=== PATIENT | female | born 1960 | race Caucasian/White ===

== ENCOUNTER 2022-06-16 01:31 | Inpatient (IN) ==
[2022-06-16] MEDS ORDERED: IOPAMIDOL 100 ML BOTTLE IV ONE (01:32)
[2022-06-16] MEDS ORDERED: LORazepam 2 MG/ML VIAL IV ONE ×2 (01:49→02:18)
[2022-06-16 02:03] LABS: POC Calcium, Ionized 1.09 (1.16-1.32); POC Creatinine 0.7 (0.6-1.2)
[2022-06-16] MEDS ORDERED: 0.9 % SODIUM CHLORIDE 500 ML IV ONE (02:19)
[2022-06-16] MEDS ORDERED: morphine 4 MG/ML VIAL IV ONE (04:22)
[2022-06-16 04:31] LABS: Appearance,Urine CLEAR (Clear); Bilirubin,Urine Negative (Negative); Color,Urine STRAW; Culture Indicated,Urine No; Glucose,Urine (UA) Negative (Negative); Ketones,Urine Negative (Negative); Leukocyte Esterase,Urine Negative /uL (Negative); Nitrate,Urine Negative (Negative); Protein,Urine Negative (Negative); Specific Gravity,Urine 1.035 (1.000-1.035); Urine Blood Negative (Negative); Urobilinogen,Urine Negative
[2022-06-16 04:37] LABS: Amphetamine Screen,Urine None detected; Barbiturate Screen,Urine None detected; Benzodiazepines Screen,Urine None detected; Cannabinoid Screen,Urine None detected; Cocaine Screen,Urine None detected; Opiate Screen,Urine None detected; Oxycodone, Urine Screen None detected; Phencyclidine Screen,Urine None detected
--- NOTE | 2022-06-16 05:57 | Emergency Department Note ---
HPI General Chief complaint: Shortness of Breath/Dyspnea Stated complaint: sob Time Seen by Provider: 06/16/22 01:49 Source: patient Mode of arrival: ambulatory Limitations: no limitations History of Present Illness HPI Narrative: Narrative: This is a 62-year-old female with a history of congestive heart failure, smoker, methamphetamine use, anxiety and panic disorder returns to the emergency department for continued shortness of breath. She also has an intrathecal pain pump. The patient was seen earlier in the night she left before all of the labs had returned. I had seen her and given her 20 mg of Lasix IV. I prescribed the patient's Lasix and given her an albuterol inhaler. Patient is not on any diuretic normally she does take Coreg. She follows with Dr. Lewis for cardiology. Patient's symptoms started 2 days ago she noticed some lower extremity edema. Patient denies any fevers, chills, chest pain. She feels like she cannot catch her breath. EMS was summoned to her house 2 times since she was discharged from the emergency department. The first time she declined transfer she was given 2 breathing treatments. Related Data Home Medications Medication Instructions Recorded Confirmed carvedilol 6.25 mg tablet 6.25 mg PO BID 10/06/21 06/16/22 lisinopril 10 mg tablet 10 mg PO QDAY 10/06/21 06/16/22 escitalopram oxalate 20 mg tablet 20 mg PO QDAY 06/16/22 06/16/22 gabapentin 100 mg capsule 100 mg PO QHS 06/16/22 06/16/22 methocarbamol 750 mg tablet 750 mg PO BID PRN Muscle spasms 06/16/22 06/16/22 ropinirole 0.25 mg tablet 0.25 mg PO QHS PRN Muscle Spasm 06/16/22 06/16/22 trazodone 150 mg tablet 225 mg PO QHS 06/16/22 06/16/22 Previous Rx's Medication Instructions Recorded walker #1 ea 11/18/19 furosemide 20 mg tablet (Lasix) 20 mg PO QAM #7 tabs 06/15/22 Allergies Allergy/AdvReac Type Severity Reaction Status Date / Time propofol AdvReac Intermediate severe Verified 06/15/22 19:37 dysphoria post-procedure Review of Systems ROS ROS Narrative: Narrative: All systems ED: reviewed and negative except as stated. PFSH Narrative Patient History Narrative: Narrative: Medical/Surgical/Family History All Active Problems (Updated 06/16/22 @ 05:57 by Martinez Luke MD) CHF (congestive heart failure) (Acute) Pulmonary edema (Acute) Malfunction of intrathecal infusion pump (Acute) Hepatitis C (Chronic) Anxiety (Chronic) Depression (Chronic) Other low back pain (Chronic) CHF (congestive heart failure) (Chronic) Myofascial pain (Chronic) Thoracic back pain (Chronic) Chronic intractable pain (Chronic) Chronic pain (Chronic) Radiculopathy, lumbar region (Chronic) Pain in thoracic spine (Chronic) Spondylosis without myelopathy or radiculopathy, thoracic region (Chronic) Methamphetamine abuse (Chronic) Screening for colon cancer (Chronic) Screening for breast cancer (Chronic) Cellulitis (Chronic) Vascular insufficiency of extremity (Chronic) Gastroenteritis (Chronic) Back pain (Chronic) Bladder infection (Chronic) Osteoporosis (Chronic) Methadone dependence (Chronic) Compression fracture (Chronic) Low back pain (Chronic) SI (sacroiliac) joint dysfunction (Chronic) Contact dermatitis (Chronic) Elevated liver enzymes (Chronic) Hyperlipidemia (Chronic) Tachycardia (Chronic) Insomnia (Chronic) Panic disorder (Chronic) Hypertension, essential (Chronic) 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 12/29/15 start back on Lexapro 20 mg, trazodone 150 mg daily at bedtime, continue 1 mg lorazepam prn, propanolol, add BuSpar, discussed use, benefits and risks. refer for counseling, follow-up one month 05/04/16 PHQ 9=25. deteriorated, refilled lorazepam she's been out for a couple months. Continue Lexapro 20 mg, taper up on BuSpar, list of counselors given to patient today, refer to psychiatry, advised her to exercise daily and follow-up in one month 12/14/16 continue Lexapro 20 mg, lorazepam 1 mg twice a day refilled. Follow- up next available appointment 05/24/17 PHQ 9= 18. Short-term early refill of lorazepam given, continue Lexapro 20 mg, trazodone at bedtime Anxiety Cellulitis Chronic intractable pain Chronic pain with intrathecal pump Compression fracture 05/13/16 seen on x-ray acute L1 compression fracture, chronic compression fractures T8-12. 06/17/16 obtain DEXA scan, follow-up with pain clinic for treatment options Contact dermatitis Depression Elevated liver enzymes stress the importance of obtaining CT scan of abdomen, check CMP and chronic hepatitis panel today 12/14/16 lab work from 01/2016 came back positive for hepatitis C, referral to gastroenterology was made but patient has not been seen. states she will schedule today Hepatitis C negative for jaundice Hyperlipidemia plan to recheck in 3 months Hypertension, essential 12/14/16 stable on 10 mg of lisinopril, add 10 mg propanolol twice a day to help with tremor and anxiety, continue to monitor blood pressure Insomnia 05/04/16 discussed she is currently devoting too much time to sleep and this will make it difficult for her to sleep at night, discussed appropriate dose of trazodone 150 at bedtime, devote 7-9 hours of sleep at bedtime, encouraged a walking program, home stretching program 12/14/16 continue trazodone 150 at bedtime Low back pain 05/04/16 discussed diagnosis, rationale for treatment, medication use and side effects. Encouraged gentle stretching, range of motion, have her start a walking program twice a day, physical therapy, discussed rationale with patient and follow-up in one month. 06/17/16 deteriorated with recent compression fracture and injury, encouraged her to follow up with the pain clinic, she is currently established. Continue physical therapy Methadone dependence 06/17/16 this is new news for me. followed by the pain clinic for the last 3 years, pain clinic prescribing buprenorphine-naloxone 8-2mg once a day. request notes Myofascial pain Other low back pain Pain in thoracic spine Panic disorder 05/16/2014 12/29/15 deteriorated, she's been off Lexapro. start back on Lexapro, con tinue trazodone, lorazepam, propanolol and add BuSpar. refer for counseling and follow-up 1 month 05/24/17 continue Lexapro 20 mg and lorazepam, propanolol and trazodone. Radiculopathy, lumbar region SI (sacroiliac) joint dysfunction 05/04/16 discussed diagnosis, rationale for treatment, medication use and side effects. Encouraged gentle stretching, range of motion, have her start a walking program twice a day, physical therapy, discussed rationale with patient and follow-up in one month. 06/17/16 continues to be an issue, she has started physical therapy, encouraged her to continue Spondylosis without myelopathy or radiculopathy, thoracic region Tachycardia EKG showing sinus tachycardia, nonspecific ST depression. orthostatic blood pressure stable. discussed results of Holter monitor, showing PVCs. Plan to obtain echocardiogram results. Obtain chest x-ray. suspect tachycardia is related to anxiety. lorazepam increased and propanolol added. discussed use, risk and benefit of medication. follow-up one month Thoracic back pain Surgical History (Updated 05/20/21 @ 09:58 by Lulu Zurita) History of appendectomy History of section x2 History of surgery RFTC Bilat T11-L1 w/sed 04/16/2019 MBB #2 [place]. T11-L1 w/o sed 02/25/2019 MBB #1 [place]. T11-L1 w/sed 01/31/2019 LESI #1 L1-2 w/sed 01/03/2017 Family History Mother Malignant neoplasm of female breast Unknown Family history of neoplasm of brain Grandfather Family history of malignant neoplasm Maternal Family history of malignant neoplasm Paternal Grandmother Family history of malignant neoplasm Maternal Family history of malignant neoplasm Paternal Father Malignant neoplasm of kidney Social History Smoking Status: Current every day smoker Alcohol Intake Frequency: does not drink Substance Use: does not use Exam Narrative Narrative: Narrative: Vital signs noted General: Awake. Alert. No distress. HEENT: NCAT PERRL EOMI. No conjunctivitis. Membranes moist. Neck: Supple, trachea midline Cardiovascular: Tachypneic Respiratory: Decent air movement throughout there is diffuse Rales no significant wheezing at this time Gastrointestinal: Soft. No tenderness Musculoskeletal: Trace lower extremity edema bilaterally Skin: Warm. Dry. No rash Neurologic: Alert and oriented x3 General Limitations: no limitations Course Vital Signs Vital signs: Vital Signs Temperature 97 F 06/16/22 01:32 Pulse Rate 131 H 06/16/22 01:32 Respiratory Rate 20 06/16/22 01:32 Blood Pressure 143/87 06/16/22 01:32 Pulse Oximetry (%) 91 06/16/22 01:32 Oxygen Delivery Method Room Air 06/16/22 01:32 Temperature 97.3 F 06/16/22 18:00 Pulse Rate 109 H 06/16/22 17:26 Respiratory Rate 19 06/16/22 17:26 Blood Pressure 124/84 06/16/22 17:00 Pulse Oximetry (%) 95 06/16/22 17:26 Oxygen Delivery Method Nasal Cannula 06/16/22 17: Oxygen Flow Rate (L/min) 2 06/16/22 17:26 MDM MDM Narrative Medical decision making narrative: Narrative: Patient presents to the emergency department with complaints of shortness of breath. She is tachypneic, tachycardic she is moving decent air but there is scattered rails. Differential includes but is not limited to CHF exacerbation, pneumonia, ACS, anxiety, substance use. The patient denies any recent substance use UDS was obtained and negative she denies any recent alcohol use or sudden cessation of alcohol use. She states herself that her symptoms may be just related to a panic attack. Patient was given at total of 2 mg of Ativan she still has significant work of breathing. Venous blood gas shows a normal pH 7.41, PCO2 is 34.8. Venous lactate is 4.0. Patient's chest x-ray from yesterday does show cardiomegaly with vascular congestion. To me this looks similar to prior. Did obtain a CT scan patient does have interstitial pulmonary edema. Patient was placed on BiPAP she had significant improvement in her heart rate, respiratory rate. The patient had been given 20 mg of IV Lasix prior to being discharged last night she had good diuresis from this. Patient's CBC did not show any evidence of leukocytosis or acute anemia. EKG per my interpretation shows sinus tachycardia multiple PVCs. Patient's proBNP is 3000 when I reviewed prior admission at [facility] in August 2021 electrolyte her proBNP at that time was around 1500 she was admitted for CHF exacerbation. Patient's systolic blood pressure was in the 130s to 140s. Lab Data Labs: Lab Results 06/16/22 06/16/22 06/16/22 Range/Units 02:00 02:00 02:02 POC Hct 40.0 (36-48) POC pH (7.35-7.45) POC pCO2 (35-45) mmHg POC pO2 (80-100) mmHg POC HCO3 (22-26) mmHg POC ABG Base Excess (-2-3) ABG Lactic Acid (0.5-2) POC VBG pH 7.41 (7.32-7.42) POC VBG pCO2 at Temp 34.8 L (41-51) POC VBG pO2 28 (25-40) POC VBG HCO3 22.2 L (24-28) POC VBG Total CO2 23.0 L (25-29) POC Venous O2 Sat 54.0 (40-70) POC VBG Base Excess -2.0 (-2-2) VBG Lactic Acid 4.0 H* (0.5-2) Hgb O2 Saturation (94-97) POC Sodium 137 (133-145) POC Potassium 4.0 (3.3-5.1) POC Chloride 101 (96-108) POC Total CO2 23.0 (22-30) POC BUN 13 (6-20) POC Creatinine 0.7 (0.6-1.2) POC Glucose 170 H (70-105) POC WB Ioniz Calcium 1.09 L (1.16-1.32) Urine Color Urine Appearance (Clear) Urine pH (5.0-9.0) Ur Specific [place] (1.000-1.035) Urine Protein (Negative) mg/dL Urine Glucose (UA) (Negative) mg/dL Urine Ketones (Negative) mg/dL Urine Occult Blood (Negative) mg/dL Urine Nitrate (Negative) Urine Bilirubin (Negative) mg/dL Urine Urobilinogen mg/dL Ur Leukocyte Esterase (Negative) /uL Ur Culture Indicated? Urine Opiates Screen Ur Opiates Confirm Ur Oxycodone Screen U Oxycod/Oxymor Confirm Urine Methadone Screen Ur Methadone Confirm Ur Barbiturates Screen Ur Barbiturate Confirm Ur Phencyclidine Scrn Urine PCP Confirm Ur Amphetamines Screen U Amphetamines Confirm U Benzodiazepines Scrn Ur Benzodiazepine, Qnt Urine Cocaine Screen Urine Cocaine Confirm U Cannabinoids Confirm U Marijuana (THC) Screen POC Troponin I 0.02 (0.00-0.08) 06/16/22 06/16/22 06/16/22 Range/Units 03:53 03:53 04:52 POC Hct (36-48) POC pH (7.35-7.45) POC pCO2 (35-45) mmHg POC pO2 (80-100) mmHg POC HCO3 (22-26) mmHg POC ABG Base Excess (-2-3) ABG Lactic Acid (0.5-2) POC VBG pH 7.41 (7.32-7.42) POC VBG pCO2 at Temp 38.0 L (41-51) POC VBG pO2 24 L (25-40) POC VBG HCO3 24.1 (24-28) POC VBG Total CO2 25.0 (25-29) POC Venous O2 Sat 42.0 (40-70) POC VBG Base Excess -1.0 (-2-2) VBG Lactic Acid 2.6 H (0.5-2) Hgb O2 Saturation (94-97) POC Sodium (133-145) POC Potassium (3.3-5.1) POC Chloride (96-108) POC Total CO2 (22-30) POC BUN (6-20) POC Creatinine (0.6-1.2) POC Glucose (70-105) POC WB Ioniz Calcium (1.16-1.32) Urine Color Straw Urine Appearance Clear (Clear) Urine pH 6.0 (5.0-9.0) Ur Specific [place] 1.035 (1.000-1.035) Urine Protein Negative (Negative) mg/dL Urine Glucose (UA) Negative (Negative) mg/dL Urine Ketones Negative (Negative) mg/dL Urine Occult Blood Negative (Negative) mg/dL Urine Nitrate Negative (Negative) Urine Bilirubin Negative (Negative) mg/dL Urine Urobilinogen Negative mg/dL Ur Leukocyte Esterase Negative (Negative) /uL Ur Culture Indicated? No Urine Opiates Screen None detected Ur Opiates Confirm TNP Ur Oxycodone Screen None detected U Oxycod/Oxymor Confirm TNP Urine Methadone Screen None detected Ur Methadone Confirm TNP Ur Barbiturates Screen None detected Ur Barbiturate Confirm TNP Ur Phencyclidine Scrn None detected Urine PCP Confirm TNP Ur Amphetamines Screen None detected U Amphetamines Confirm TNP U Benzodiazepines Scrn None detected Ur Benzodiazepine, Qnt TNP Urine Cocaine Screen None detected Urine Cocaine Confirm TNP U Cannabinoids Confirm TNP U Marijuana (THC) Screen None detected POC Troponin I (0.00-0.08) 06/16/22 06/16/22 Range/Units 05:10 08:15 POC Hct (36-48) POC pH 7.43 (7.35-7.45) POC pCO2 32.3 L (35-45) mmHg POC pO2 56 L (80-100) mmHg POC HCO3 21.6 L (22-26) mmHg POC ABG Base Excess -3.0 L (-2-3) ABG Lactic Acid 2.8 H (0.5-2) POC VBG pH (7.32-7.42) POC VBG pCO2 at Temp (41-51) POC VBG pO2 (25-40) POC VBG HCO3 (24-28) POC VBG Total CO2 (25-29) POC Venous O2 Sat (40-70) POC VBG Base Excess (-2-2) VBG Lactic Acid 2.0 (0.5-2) Hgb O2 Saturation 90.0 L (94-97) POC Sodium (133-145) POC Potassium (3.3-5.1) POC Chloride (96-108) POC Total CO2 23.0 (22-30) POC BUN (6-20) POC Creatinine (0.6-1.2) POC Glucose (70-105) POC WB Ioniz Calcium (1.16-1.32) Urine Color Urine Appearance (Clear) Urine pH (5.0-9.0) Ur Specific [place] (1.000-1.035) Urine Protein (Negative) mg/dL Urine Glucose (UA) (Negative) mg/dL Urine Ketones (Negative) mg/dL Urine Occult Blood (Negative) mg/dL Urine Nitrate (Negative) Urine Bilirubin (Negative) mg/dL Urine Urobilinogen mg/dL Ur Leukocyte Esterase (Negative) /uL Ur Culture Indicated? Urine Opiates Screen Ur Opiates Confirm Ur Oxycodone Screen U Oxycod/Oxymor Confirm Urine Methadone Screen Ur Methadone Confirm Ur Barbiturates Screen Ur Barbiturate Confirm Ur Phencyclidine Scrn Urine PCP Confirm Ur Amphetamines Screen U Amphetamines Confirm U Benzodiazepines Scrn Ur Benzodiazepine, Qnt Urine Cocaine Screen Urine Cocaine Confirm U Cannabinoids Confirm U Marijuana (THC) Screen POC Troponin I (0.00-0.08) CC TIME Critical Care Time Critical Care Time: Yes Total Critical Care Time: 35 Attestation: Total critical care time of 35 min including performance of history and physical exam, review of results, re-examinations, time spent documenting, order worker, review of old records, discussions with patient and family, discussions with insolvency consultant(s), discussion with admitting physician, completion of admission/transfer paperwork. This does not include time for any separately documented procedures. Discharge Plan Patient/Caregiver Discharge Instructions Pt seen by INCOME TAX ADVISOR/PA only: No Clinical Impression: Pulmonary edema Patient Disposition: Still a Patient Condition: Good Discharge Date/Time: 06/16/22 09:48
--- NOTE | 2022-06-16 09:01 | Cat Scan Report ---
History: Shortness of breath, evaluate for pulmonary emboli TECHNIQUE: Following injection of intravenous nonionic contrast the chest was imaged during the pulmonary arterial phase from above the thoracic inlet through the adrenals. Sagittal, coronal and MIPS images were created. The radiation exposure was limited using dose reduction technology. FINDINGS: The pulmonary arteries are normal without evidence of emboli. Central pulmonary artery is normal in caliber. The heart is mildly enlarged. There are few scattered plaques in the left anterior descending coronary. The aorta is normal in caliber and there is minimal plaque formation in the arch. Mild emphysema is present in both lungs, most apparent in the upper lobes. There is interstitial edema in the lung bases including the lower lobes, middle lobe and lingula. There are subtle groundglass alveolar opacities in the lung bases. No lobar consolidation is present. There is no evidence of a lung mass. Tiny bilateral layering pleural effusions are seen. There is no pericardial effusion. No adenopathy is detected. Bone windows reveal numerous compression fractures in the thoracic and upper lumbar spine. The most severe compression fracture is at L1. The fractures are stable with no change since prior CT done on 02/10/22. IMPRESSION: No evidence pulmonary emboli. Mild emphysema Mild cardiomegaly and congestive heart failure Interpreted and Authenticated by: Isaias Duarte 06/16/22
--- NOTE | 2022-06-16 10:41 | Internal Med History&Physical ---
HPI History of Present Illness Patient information: Note initiated : 06/16/22 at 10:27 am Service Date, if different from initiated Date: [] Patient: Elsa Walters a 62 y/o F admitted on 06/16/22 for sob. Chief Complaint: [] History of present illness: Ms. Walters is a 62 year old F Patient presents for shortness of breath. Patient states that several nights ago she develops worsening shortness of breath. She denies any increased cough. Patient does have history of CHF but not normally on a diuretic. She does take Coreg and lisinopril. Patient reports increased leg swelling over the past few days. She also complains orthopnea. EMS been called to her house twice and she declined transfer to ED the first time but second time was amenable. Patient denies any recent illnesses. Denies chest pain She does have a history of anxiety as well and states Anxiety contributing. Chest x-ray in ED showed pulmonary edema. Because of respiratory distress and pulmonary edema patient placed on BiPAP with improvement. Patient given Lasix in the ED. proBNP 3000. Lactic acidosis elevated at 4 initially with an improved after being on BiPAP. CTA of the chest showed no PE but did showed mild emphysema as well as cardiomegaly and pulmonary edema. EKG in sinus rhythm. Review of Systems: Pertinent positives of as above plus episode of diarrhea yesterday. Denies headache/fever/chills/nausea/vomiting/chest or abdominal pain/cough/. Remaining 10 point review of system reviewed negative PHYSICAL EXAM General: Alert, Awake, No acute Distress Eyes/N/T: EOMI, no scleral icterus, PERRL, Head/Neck: neck supple, full ROM, normocephalic atraumatic CV: Tacky but regular,, No murmurs, normal s1/s2 Pulm: Diminished b/l, occasional wheezing, mod respiratory distress Abd: soft, nontender, +BS x4 Ext: no clubbing/cyanosis, b/l LE 1-2+ edema, nontender Neuro: Alert, CN 2-12 grossly intact, no focal deficits, moves all extremities, , sensations intact b/l upper/lower Psychiatric: Anxious Skin: warm/dry, normal color PFSH PFSH All Active Problems (Updated 06/16/22 @ 05:57 by Martinez Luke MD) CHF (congestive heart failure) (Acute) Pulmonary edema (Acute) Malfunction of intrathecal infusion pump (Acute) Hepatitis C (Chronic) Anxiety (Chronic) Depression (Chronic) Other low back pain (Chronic) CHF (congestive heart failure) (Chronic) Myofascial pain (Chronic) Thoracic back pain (Chronic) Chronic intractable pain (Chronic) Chronic pain (Chronic) Radiculopathy, lumbar region (Chronic) Pain in thoracic spine (Chronic) Spondylosis without myelopathy or radiculopathy, thoracic region (Chronic) Methamphetamine abuse (Chronic) Screening for colon cancer (Chronic) Screening for breast cancer (Chronic) Cellulitis (Chronic) Vascular insufficiency of extremity (Chronic) Gastroenteritis (Chronic) Back pain (Chronic) Bladder infection (Chronic) Osteoporosis (Chronic) Methadone dependence (Chronic) Compression fracture (Chronic) Low back pain (Chronic) SI (sacroiliac) joint dysfunction (Chronic) Contact dermatitis (Chronic) Elevated liver enzymes (Chronic) Hyperlipidemia (Chronic) Tachycardia (Chronic) Insomnia (Chronic) Panic disorder (Chronic) Hypertension, essential (Chronic) 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 12/29/15 start back on Lexapro 20 mg, trazodone 150 mg daily at bedtime, continue 1 mg lorazepam prn, propanolol, add BuSpar, discussed use, benefits and risks. refer for counseling, follow-up one month 05/04/16 PHQ 9=25. deteriorated, refilled lorazepam she's been out for a couple months. Continue Lexapro 20 mg, taper up on BuSpar, list of counselors given to patient today, refer to psychiatry, advised her to exercise daily and follow-up in one month 12/14/16 continue Lexapro 20 mg, lorazepam 1 mg twice a day refilled. Follow- up next available appointment 05/24/17 PHQ 9= 18. Short-term early refill of lorazepam given, continue Lexapro 20 mg, trazodone at bedtime Anxiety Cellulitis Chronic intractable pain Chronic pain with intrathecal pump Compression fracture 05/13/16 seen on x-ray acute L1 compression fracture, chronic compression fractures T8-12. 06/17/16 obtain DEXA scan, follow-up with pain clinic for treatment options Contact dermatitis Depression Elevated liver enzymes stress the importance of obtaining CT scan of abdomen, check CMP and chronic hepatitis panel today 12/14/16 lab work from 01/2016 came back positive for hepatitis C, referral to gastroenterology was made but patient has not been seen. states she will schedule today Hepatitis C negative for jaundice Hyperlipidemia plan to recheck in 3 months Hypertension, essential 12/14/16 stable on 10 mg of lisinopril, add 10 mg propanolol twice a day to help with tremor and anxiety, continue to monitor blood pressure Insomnia 05/04/16 discussed she is currently devoting too much time to sleep and this will make it difficult for her to sleep at night, discussed appropriate dose of trazodone 150 at bedtime, devote 7-9 hours of sleep at bedtime, encouraged a walking program, home stretching program 12/14/16 continue trazodone 150 at bedtime Low back pain 05/04/16 discussed diagnosis, rationale for treatment, medication use and side effects. Encouraged gentle stretching, range of motion, have her start a walking program twice a day, physical therapy, discussed rationale with patient and follow-up in one month. 06/17/16 deteriorated with recent compression fracture and injury, encouraged her to follow up with the pain clinic, she is currently established. Continue physical therapy Methadone dependence 06/17/16 this is new news for me. followed by the pain clinic for the last 3 years, pain clinic prescribing buprenorphine-naloxone 8-2mg once a day. request notes Myofascial pain Other low back pain Pain in thoracic spine Panic disorder 05/16/2014 12/29/15 deteriorated, she's been off Lexapro. start back on Lexapro, continue trazodone, lorazepam, propanolol and add BuSpar. refer for counseling and follow-up 1 month 05/24/17 continue Lexapro 20 mg and lorazepam, propanolol and trazodone. Radiculopathy, lumbar region SI (sacroiliac) joint dysfunction 05/04/16 discussed diagnosis, rationale for treatment, medication use and side effects. Encouraged gentle stretching, range of motion, have her start a walking program twice a day, physical therapy, discussed rationale with patient and follow-up in one month. 06/17/16 continues to be an issue, she has started physical therapy, encouraged her to continue Spondylosis without myelopathy or radiculopathy, thoracic region Tachycardia EKG showing sinus tachycardia, nonspecific ST depression. orthostatic blood pressure stable. discussed results of Holter monitor, showing PVCs. Plan to obtain echocardiogram results. Obtain chest x-ray. suspect tachycardia is related to anxiety. lorazepam increased and propanolol added. discussed use, risk and benefit of medication. follow-up one month Thoracic back pain Surgical History (Updated 05/20/21 @ 09:58 by Lulu Zurita) History of appendectomy History of section x2 History of surgery RFTC Bilat T11-L1 w/sed 04/16/2019 MBB #2 [place]. T11-L1 w/o sed 02/25/2019 MBB #1 [place]. T11-L1 w/sed 01/31/2019 LESI #1 L1-2 w/sed 01/03/2017 Family History Mother Malignant neoplasm of female breast Unknown Family history of neoplasm of brain Grandfather Family history of malignant neoplasm Maternal Family history of malignant neoplasm Paternal Grandmother Family history of malignant neoplasm Maternal Family history of malignant neoplasm Paternal Father Malignant neoplasm of kidney Social History (Updated 05/24/17 @ 16:22 by LUIS ANGEL Dennison) adopted: No caregiver/support person: No foster care: No household members: family housing: other details: mobile home lives independently: Yes marital status: education level: high school service: No fdc: No occupational status: unemployed 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 pets and animals: Yes pets and animals: cat(s) and dog(s) hx recent travel: No sexually active: No smoking status: Current every day smoker tobacco type: cigarettes per day: 20 alcohol intake frequency: does not drink substance use type: does not use MEDS/ALLERGIES Home Medications and Allergies Home Medications Medication Instructions Recorded Confirmed Type walker #1 ea 11/18/19 06/16/22 Rx carvedilol 6.25 mg tablet 6.25 mg PO BID 10/06/21 06/16/22 History lisinopril 10 mg tablet 10 mg PO QDAY 10/06/21 06/16/22 History furosemide 20 mg tablet (Lasix) 20 mg PO QAM #7 tabs 06/15/22 06/16/22 Rx Allergies Allergy/AdvReac Type Severity Reaction Status Date / Time propofol AdvReac Intermediate severe Verified 06/15/22 19:37 dysphoria post-procedure EXAM Constitutional Vitals: Temp Pulse Resp BP Pulse Ox O2 Del Method O2 Flow Rate 97 F 104 H 16 153/92 98 BiPAP 30 06/16/22 09:42 06/16/22 09:34 06/16/22 09:42 06/16/22 09:42 06/16/22 09:42 06/16/22 06:58 06/16/22 06:01 DATA Data Completed and Pending Labs: Labs from last 24 hours 06/16/22 06/16/22 06/16/22 08:15 05:10 04:52 POC Hct POC pH 7.43 POC pCO2 32.3 L POC pO2 56 L POC HCO3 21.6 L POC ABG Base Excess -3.0 L ABG Lactic Acid 2.8 H POC VBG pH 7.41 POC VBG pCO2 at Temp 38.0 L POC VBG pO2 24 L POC VBG HCO3 24.1 POC VBG Total CO2 25.0 POC Venous O2 Sat 42.0 POC VBG Base Excess -1.0 VBG Lactic Acid 2.0 2.6 H Hgb O2 Saturation 90.0 L POC Sodium POC Potassium POC Chloride POC Total CO2 23.0 POC BUN POC Creatinine POC Glucose POC WB Ioniz Calcium Urine Color Urine Appearance Urine pH Ur Specific Leslie Urine Protein Urine Glucose (UA) Urine Ketones Urine Occult Blood Urine Nitrate Urine Bilirubin Urine Urobilinogen Ur Leukocyte Esterase Ur Culture Indicated? Urine Opiates Screen Ur Opiates Confirm Ur Oxycodone Screen U Oxycod/Oxymor Confirm Urine Methadone Screen Ur Methadone Confirm Ur Barbiturates Screen Ur Barbiturate Confirm Ur Phencyclidine Scrn Urine PCP Confirm Ur Amphetamines Screen U Amphetamines Confirm U Benzodiazepines Scrn Ur Benzodiazepine, Qnt Urine Cocaine Screen Urine Cocaine Confirm U Cannabinoids Confirm U Marijuana (THC) Screen POC Troponin I 06/16/22 06/16/22 06/16/22 03:53 03:53 02:02 POC Hct POC pH POC pCO2 POC pO2 POC HCO3 POC ABG Base Excess ABG Lactic Acid POC VBG pH POC VBG pCO2 at Temp POC VBG pO2 POC VBG HCO3 POC VBG Total CO2 POC Venous O2 Sat POC VBG Base Excess VBG Lactic Acid Hgb O2 Saturation POC Sodium POC Potassium POC Chloride POC Total CO2 POC BUN POC Creatinine POC Glucose POC WB Ioniz Calcium Urine Color Straw Urine Appearance Clear Urine pH 6.0 Ur Specific Leslie 1.035 Urine Protein Negative Urine Glucose (UA) Negative Urine Ketones Negative Urine Occult Blood Negative Urine Nitrate Negative Urine Bilirubin Negative Urine Urobilinogen Negative Ur Leukocyte Esterase Negative Ur Culture Indicated? No Urine Opiates Screen None detected Ur Opiates Confirm TNP Ur Oxycodone Screen None detected U Oxycod/Oxymor Confirm TNP Urine Methadone Screen None detected Ur Methadone Confirm TNP Ur Barbiturates Screen None detected Ur Barbiturate Confirm TNP Ur Phencyclidine Scrn None detected Urine PCP Confirm TNP Ur Amphetamines Screen None detected U Amphetamines Confirm TNP U Benzodiazepines Scrn None detected Ur Benzodiazepine, Qnt TNP Urine Cocaine Screen None detected Urine Cocaine Confirm TNP U Cannabinoids Confirm TNP U Marijuana (THC) Screen None detected POC Troponin I 0.02 06/16/22 06/16/22 02:00 02:00 POC Hct 40.0 POC pH POC pCO2 POC pO2 POC HCO3 POC ABG Base Excess ABG Lactic Acid POC VBG pH 7.41 POC VBG pCO2 at Temp 34.8 L POC VBG pO2 28 POC VBG HCO3 22.2 L POC VBG Total CO2 23.0 L POC Venous O2 Sat 54.0 POC VBG Base Excess -2.0 VBG Lactic Acid 4.0 H* Hgb O2 Saturation POC Sodium 137 POC Potassium 4.0 POC Chloride 101 POC Total CO2 23.0 POC BUN 13 POC Creatinine 0.7 POC Glucose 170 H POC WB Ioniz Calcium 1.09 L Urine Color Urine Appearance Urine pH Ur Specific Leslie Urine Protein Urine Glucose (UA) Urine Ketones Urine Occult Blood Urine Nitrate Urine Bilirubin Urine Urobilinogen Ur Leukocyte Esterase Ur Culture Indicated? Urine Opiates Screen Ur Opiates Confirm Ur Oxycodone Screen U Oxycod/Oxymor Confirm Urine Methadone Screen Ur Methadone Confirm Ur Barbiturates Screen Ur Barbiturate Confirm Ur Phencyclidine Scrn Urine PCP Confirm Ur Amphetamines Screen U Amphetamines Confirm U Benzodiazepines Scrn Ur Benzodiazepine, Qnt Urine Cocaine Screen Urine Cocaine Confirm U Cannabinoids Confirm U Marijuana (THC) Screen POC Troponin I A/P Narrative A/P Narrative: A: *Acute hypoxic respiratory failure: 2/2 CHF *Acute on chronic systolic(40-45%)/diastolic(II) heart failure: follows with Dr. Lewis *COPD(not on home O2): *HTN: elevated *Anxiety/depression: *Tobacco abuse: *Chronic pain: Has intrathecal pump and follows with pain clinic P: -BiPAP and wean as able -IV Lasix bid -nitro -Monitor renal function/UOP/fluid balance -echo -prn ativan - -Continue home beta-umesh and ACEI -Home medication reconciliation -prn nebs -PT/OT -CM for placement needs -prescribe rescue inhaler upon d/c -Smoke cessation counseling >3 minutes -ppx: Lovenox Time Spent With Patient Time: Total time spent is greater than 50% in coordination of care (as documented) at patient's floor/unit and/or counseling patient: Critical Care Time: Yes Total Critical Care Time: 70 QUALITY Stroke Symptom Onset Unknown: No
[2022-06-16] MEDS ORDERED: MAGNESIUM SULFATE 2 GM/50 ML BAG IV PRN (10:46)
[2022-06-16] MEDS ORDERED: POTASSIUM CHLORIDE 40 MEQ in DEXTROSE 5% IN WATER 500 ML IV PRN (10:46)
[2022-06-16] MEDS ORDERED: POTASSIUM CHLORIDE 20 MEQ TABLET PO PRN ×2 (10:46)
[2022-06-16] MEDS ORDERED: ONDANSETRON 4 MG/2 ML VIAL IV PRN (10:46)
[2022-06-16] MEDS ORDERED: NITROGLYCERIN 1 GM OINT.TOP TD ONE (10:46)
[2022-06-16] MEDS ORDERED: POLYETHYLENE GLYCOL 3350 17 GM PACKET PO PRN (10:46)
[2022-06-16] MEDS ORDERED: SENNOSIDES 1 TABLET PO PRN (10:46)
[2022-06-16] MEDS ORDERED: ACETAMINOPHEN 325 MG TABLET PO PRN (10:47)
[2022-06-16] MEDS ORDERED: IPRATROPIUM/ALBUTEROL 3 ML AMPUL.NEB NEB PRN (10:47)
[2022-06-16] MEDS: FUROSEMIDE 40 MG/4 ML VIAL IV SCH ×2 (11:32→15:42)
[2022-06-16] MEDS: LORazepam 2 MG/ML VIAL IV PRN ×2 (12:10→19:12)
[2022-06-16] MEDS ORDERED: 0.9 % SODIUM CHLORIDE 10 ML SYRINGE IV SCH (14:00)
[2022-06-16] MEDS: 0.9 % SODIUM CHLORIDE 10 ML SYRINGE IV SCH ×2 (14:36→20:58)
[2022-06-16] MEDS ORDERED: METHOCARBAMOL 750 MG TABLET PO PRN (16:25)
[2022-06-16] MEDS ORDERED: rOPINIRole 0.25 MG TABLET PO PRN (16:25)
[2022-06-16] MEDS: CARVEDILOL 6.25 MG TABLET PO SCH (16:59)
[2022-06-16] MEDS: NICOTINE 14 MG PATCH TOPICAL SCH (17:07)
[2022-06-16] MEDS: BUTALB/ACETAMINOPHEN/CAFFEINE 1 TABLET PO PRN (20:03)
[2022-06-16] MEDS ORDERED: traZODone HCL 150 MG TABLET PO SCH (21:00)
[2022-06-16] MEDS ORDERED: GABAPENTIN 100 MG CAPSULE PO SCH (21:00)
[2022-06-17] MEDS: LORazepam 2 MG/ML VIAL IV PRN ×3 (00:19→14:31)
[2022-06-17] MEDS: 0.9 % SODIUM CHLORIDE 10 ML SYRINGE IV SCH ×2 (05:45→14:32)
[2022-06-17 06:35] LABS: Basophils # (Auto) 0.04 K/mcL (0.00-0.30); Basophils % (Auto) 0.4 % (0.0-2.0); Eosinophils # (Auto) 0.03 K/mcL (0.00-0.70); Eosinophils % (Auto) 0.3 % (0.0-7.0); Hematocrit 36.4 % (34.1-44.9); Hemoglobin 11.2 g/dL (11.2-15.7); Lymphocytes # (Auto) 3.38 K/mcL (1.50-4.80); Lymphocytes % (Auto) 36.5 % (15.5-49.0); Mean Cell Volume 92.4 fL (80.0-100.0); Mean Corpuscular HGB Conc 30.8 g/dL (31.0-36.0); Mean Platelet Volume 11.3 fL (8.8-12.5); Monocytes % (Auto) 10.8 % (1.0-12.0); Neutrophils % (Auto) 51.8 % (38.0-78.0); Platelet Count 239 K/mcL (140-440); RBC 3.94 M/mcL (3.59-5.38); Red Cell Distribution Width 15.6 % (11.5-14.5); WBC 9.3 K/mcL (4.5-11.0)
[2022-06-17 07:09] LABS: ALT/SGPT 14 U/L (<40); AST/SGOT 15 U/L (<32); Albumin 3.9 gm/dL (3.2-5.2); Albumin/Globulin Ratio 1.4 (1.0-2.3); Alkaline Phosphatase 90 U/L (39-117); Bilirubin,Direct < 0.2 mg/dL (0-0.3); Bilirubin,Total 0.4 mg/dL (0.1-1.0); Blood Urea Nitrogen 27 mg/dL (6-20); Calcium 9.4 mg/dL (8.6-10.4); Carbon Dioxide 27 mmol/L (22-30); Chloride 101 mmol/L (96-108); Globulin 2.8 gm/dL (2.2-3.7); Glomerular Filtration Rate 69; Glucose 94 mg/dL (70-105); Lactate Dehydrogenase 319 U/L (135-225); Phosphorous 2.4 mg/dL (2.5-4.5); Triglycerides 125 mg/dL (<150); Uric Acid 7.4 mg/dL (2.5-8.0)
--- NOTE | 2022-06-17 07:29 | Internal Med Progress Note ---
SUBJECTIVE Subjective Patient information: Note initiated : 06/17/22 at 7:24 am Service Date, if different from initiated Date: [] Patient: Elsa Walters 62 y/o F admitted on 06/16/22 for sob. Chief Complaint: [] Interval history: History of present illness: Ms. Walters is a 62 year old F Patient presents for shortness of breath. Patient states that several nights ago she develops worsening shortness of breath. She denies any increased cough. Patient does have history of CHF but not normally on a diuretic. She does take Coreg and lisinopril. Patient reports increased leg swelling over the past few days. She also complains orthopnea. EMS been called to her house twice and she declined transfer to ED the first time but second time was amenable. Patient denies any recent illnesses. Denies chest pain She does have a history of anxiety as well and states Anxiety contributing. Chest x-ray in ED showed pulmonary edema. Because of respiratory distress and pulmonary edema patient placed on BiPAP with improvement. Patient given Lasix in the ED. proBNP 3000. Lactic acidosis elevated at 4 initially with an improved after being on BiPAP. CTA of the chest showed no PE but did showed mild emphysema as well as cardiomegaly and pulmonary edema. EKG in sinus rhythm. 5/5 Patient feeling better today. Still has shortness of breath but much improved. She is on nasal cannula. Echo shows reduced EF from previous echo.. No overnight events or new complaints. Review of Systems: Pertinent positives of as above plus episode of diarrhea yesterday. Denies headache/fever/chills/nausea/vomiting/chest or abdominal pain/cough/. PHYSICAL EXAM General: Alert, Awake, No acute Distress Eyes/N/T: EOMI, no scleral icterus, Head/Neck: neck supple, full ROM, CV: RRR,, No murmurs, Pulm: Diminished b/l but better, no wheezing, no respiratory distress Abd: soft, nontender, +BS x4 Ext: no clubbing/cyanosis, b/l LE 1+ edema, nontender Neuro: Alert, no focal deficits, moves all extremities, , sensations intact b/l upper/lower Psychiatric: Anxious Skin: warm/dry, normal color Constitutional Vitals: Vital Signs Temp Pulse Resp BP Pulse Ox O2 Del Method O2 Flow Rate 97.8 F 84 12 114/61 98 Nasal Cannula 3 06/17/22 04:01 06/17/22 05:56 06/17/22 05:56 06/17/22 05:01 06/17/22 05:56 06/17/22 04:01 06/17/22 04:01 Period Temp Pulse Resp BP Sys/Olson Pulse Ox O2 Del Method O2 Flow Rate Last 24 Hr 96 F-98.2 F 79-129 12-29 75-163/44-146 93-100 BiPAP-Nasal Cannula 2-3 Intake and Output 06/16/22 06/17/22 06/17/22 19:59 03:59 11:59 Intake Total 200 220 220 Output Total 1525 125 Balance -1325 95 220 Weight 81.828 kg Intake & Output: Intake & Output 06/16/22 06/17/22 06/17/22 19:59 03:59 11:59 Intake Total 200 220 220 Output Total 1525 125 Balance -1325 95 220 Weight 81.828 kg Intake: Oral 200 220 220 Output: Void Amount 1525 125 Other: Meal Dinner Percent of Meal Consumed 10 Feeding Ability Independent Urine Appearance Clear Clear Urine Color Yellow Light Sepideh Urine Odor Normal OBJ DATA Labs 06/17/22 05:11 06/17/22 05:11 Labs: Abnormal Lab Results 06/17/22 06/17/22 06/16/22 05:11 05:11 05:10 MCHC 30.8 L RDW 15.6 H [place] # (Auto) 1.00 H POC pCO2 32.3 L POC pO2 56 L POC HCO3 21.6 L POC ABG Base Excess -3.0 L ABG Lactic Acid 2.8 H POC VBG pCO2 at Temp POC VBG pO2 POC VBG HCO3 POC VBG Total CO2 VBG Lactic Acid Hgb O2 Saturation 90.0 L BUN 27 H POC Glucose POC WB Ioniz Calcium Phosphorus 2.4 L Lactate Dehydrogenase 319 H 06/16/22 06/16/22 06/16/22 04:52 02:00 02:00 MCHC RDW [place] # (Auto) POC pCO2 POC pO2 POC HCO3 POC ABG Base Excess ABG Lactic Acid POC VBG pCO2 at Temp 38.0 L 34.8 L POC VBG pO2 24 L POC VBG HCO3 22.2 L POC VBG Total CO2 23.0 L VBG Lactic Acid 2.6 H 4.0 H* Hgb O2 Saturation BUN POC Glucose 170 H POC WB Ioniz Calcium 1.09 L Phosphorus Lactate Dehydrogenase Meds: Medications Acetaminophen (Acetaminophen 325 Mg Tablet) 650 mg PO Q6HP PRN; Protocol PRN Reason: Per Pain Protocol/Fever > 101 Last Admin: 06/16/22 14:35 Dose: 650 mg Acetaminophen/Butalbital/Caffeine (Butalb/Acetaminophen/Caffeine 1 Tablet) 1 tab PO Q4HP PRN PRN Reason: Headache Last Admin: 06/16/22 20:03 Dose: 1 tab Albuterol/Ipratropium (Ipratropium/Albuterol 3 Ml Ampul.Neb) 3 ml NEB Q4HP PRN PRN Reason: Shortness Of Breath Carvedilol (Carvedilol 6.25 Mg Tablet) 6.25 mg PO BIDCC [facility] Last Admin: 06/16/22 16:59 Dose: 6.25 mg Enoxaparin Sodium (Enoxaparin 40 Mg/0.4 Ml Syringe) 40 mg SQ DAILY [facility] Escitalopram Oxalate (Escitalopram 20 Mg Tablet) 20 mg PO QDAY [facility] Furosemide (Furosemide 40 Mg/4 Ml Vial) 40 mg IV BIDD [facility] Last Admin: 06/16/22 15:42 Dose: 40 mg Gabapentin (Gabapentin 100 Mg Capsule) 100 mg PO QHS [facility] Last Admin: 06/16/22 20:58 Dose: 100 mg Potassium Chloride 40 meq/ (Dextrose) 520 mls @ 130 mls/hr IV UD PRN PRN Reason: Potassium < 3 Magnesium Sulfate (Magnesium Sulfate) 2 gm in 50 mls @ 50 mls/hr IV UD PRN PRN Reason: Magnesium </= 1.6 Lisinopril (Lisinopril 10 Mg Tablet) 10 mg PO QDAY [facility] Lorazepam (Lorazepam 2 Mg/Ml Vial) 0.5 mg IV Q6HP PRN PRN Reason: ANXIETY/SEDATION Last Admin: 06/17/22 00:19 Dose: 0.5 mg Methocarbamol (Methocarbamol 750 Mg Tablet) 750 mg PO BID PRN PRN Reason: Muscle spasms Nicotine (Nicotine 14 Mg Patch) 14 mg TOPICAL DAILY@1000 [facility] Last Admin: 06/16/22 17:07 Dose: 14 mg Ondansetron HCl (Ondansetron 4 Mg/2 Ml Vial) 4 mg IV Q4HP PRN PRN Reason: Nausea And Vomiting Last Admin: 06/16/22 17:35 Dose: 4 mg Pneumococcal Polyvalent Vaccine (Pneumococcal 23-Katy P-Sac Vac 0.5 Ml Syringe) 0.5 ml IM .ONCE ONE Stop: 06/17/22 10:01 Polyethylene Glycol (Polyethylene Glycol 3350 17 Gm Packet) 17 gm PO DAILYP PRN PRN Reason: Constipation Potassium Chloride (Potassium Chloride 20 Meq Tablet) 40 meq PO UD PRN PRN Reason: Potssium is 3-3.5 Potassium Chloride (Potassium Chloride 20 Meq Tablet) 40 meq PO UD PRN PRN Reason: Potassium < 3 Ropinirole HCl (Ropinirole 0.25 Mg Tablet) 0.25 mg PO QHS PRN PRN Reason: Muscle Spasm Senna (Sennosides 1 Tablet) 2 tab PO DAILYP PRN PRN Reason: Constipation Sodium Chloride (0.9 % Sodium Chloride 10 Ml Syringe) 10 ml IV Q8 [facility] Last Admin: 06/17/22 05:45 Dose: 10 ml Trazodone HCl (Trazodone Hcl 150 Mg Tablet) 225 mg PO QHS [facility] Last Admin: 06/16/22 20:58 Dose: 225 mg A/P Narrative A/P Narrative: A: *Acute hypoxic respiratory failure: 2/2 CHF -on bipap initially -currently on 3L *Hyperlactatemia: 2/2 above *Acute on chronic systolic(35%)/diastolic(II) heart failure: follows with Dr. Lewis -good diuresis o/n *COPD(not on home O2): *HTN: elevated on admit *Anxiety/depression: *Tobacco abuse: *Chronic pain: Has intrathecal pump and follows with pain clinic P: -BiPAP and wean as able -IV Lasix bid -nitro d/c -Monitor renal function/UOP/fluid balance -Monitor and replace electrolytes as needed -home beta-umesh and ACEI (reduce for soft BP, increase as needed) -prn ativan -prn nebs -PT/OT -CM for placement needs -prescribe rescue inhaler upon d/c -Smoke cessation counseling -ppx: Lovenox Time Spent With Patient Time: Total time spent is greater than 50% in coordination of care (as documented) at patient's floor/unit and/or counseling patient: Subsequent: Total time with patient: 50 - 65 Minutes QUALITY Stroke Symptom Onset Unknown: No VTE Deep Vein Thrombosis/Pulmonary Embolism Present on Admission: No
[2022-06-17] MEDS: BUTALB/ACETAMINOPHEN/CAFFEINE 1 TABLET PO PRN ×2 (07:42→19:08)
[2022-06-17] MEDS: CARVEDILOL 6.25 MG TABLET PO SCH ×2 (07:44→17:23)
[2022-06-17] MEDS: FUROSEMIDE 40 MG/4 ML VIAL IV SCH ×3 (07:44→16:21)
--- NOTE | 2022-06-17 08:52 | EKG ---
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
--- NOTE | 2022-06-17 08:53 | EKG ---
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
[2022-06-17] MEDS ORDERED: ESCITALOPRAM 20 MG TABLET PO SCH (09:00)
[2022-06-17] MEDS ORDERED: LISINOPRIL 5 MG TABLET PO SCH (09:00)
[2022-06-17] MEDS ORDERED: ENOXAPARIN 40 MG/0.4 ML SYRINGE SQ SCH (09:00)
[2022-06-17] MEDS ORDERED: LISINOPRIL 10 MG TABLET PO SCH (09:00)
--- NOTE | 2022-06-17 09:03 | XRay Report ---
HISTORY: History: Shortness of breath, follow-up congestive heart failure /edema FINDINGS: The heart is mildly enlarged. The congestive heart failure has improved since the CT scan done on 06/16/22 but may not have completely resolved. Lung volumes are normal. There is no lobar consolidation. No pleural effusion is present. Aorta is mildly tortuous. IMPRESSION: Improving congestive heart failure Interpreted and Authenticated by: Isaias Duarte 06/17/22
[2022-06-17] MEDS ORDERED: PNEUMOCOCCAL 23-VAL P-SAC VAC 0.5 ML SYRINGE IM ONE (10:00)
[2022-06-17] MEDS ORDERED: diphenhydrAMINE 25 MG CAPSULE PO ONE ×2 (10:41→11:45)
[2022-06-17] MEDS ORDERED: GABAPENTIN 300 MG CAPSULE PO ONE ×2 (10:41→11:45)
[2022-06-17] MEDS ORDERED: PHOSPHORUS 250 MG TABLET PO ONE (10:49)
[2022-06-17] MEDS: NICOTINE 14 MG PATCH TOPICAL SCH (11:25)
--- NOTE | 2022-06-17 12:16 | Internal Med Progress Note ---
SUBJECTIVE Subjective Patient information: Note initiated : 06/17/22 at 12:09 pm Service Date, if different from initiated Date: [] Patient: Elsa Walters 62 y/o F admitted on 06/16/22 for sob. Chief Complaint: [] Interval history: Ms. Walters is a 62 year old female who presented to the emergency department for shortness of breath. Patient stated that several nights ago she develops worsening shortness of breath. She denies any increased cough. Patient does have history of CHF but not normally on a diuretic. She does take Coreg and lisinopril. Patient reports increased leg swelling over the past few days. She also complains orthopnea. EMS been called to her house twice and she declined transfer to ED the first time but second time was amenable. Patient denied any recent illnesses, denied chest pain. Chest x-ray in ED showed pulmonary edema. Because of respiratory distress and pulmonary edema patient placed on BiPAP with improvement. Patient given Lasix in the ED. proBNP 3000. Lactic acidosis elevated at 4 initially with an improved after being on BiPAP. CTA of the chest showed no PE but did showed mild emphysema as well as cardiomegaly and pulmonary edema. EKG in sinus rhythm. 06/17 Patient feeling better today. Still has shortness of breath but much improved. She is on nasal cannula. Echo shows reduced EF from previous echo.. No overnight events or new complaints. 06/18 Physical exam Head: Atraumatic, normal inspection. Eyes: normal appearance, no scleral icterus. Neck: full ROM Respiratory: no respiratory distress. Cardiovascular: normal rate and rhythm, S1, S2. GI/Abdominal: soft, nontender, no guarding. Extremities: full range of motion, nontender. Neurological: CN II-XII intact, intact motor, intact sensation. Psychiatric: normal mood. Skin: warm, normal color Constitutional Vitals: Vital Signs Temp Pulse Resp BP Pulse Ox O2 Del Method O2 Flow Rate 98.0 F 106 H 24 H 109/60 98 Nasal Cannula 2 06/17/22 10:02 06/17/22 10:22 06/17/22 10:48 06/17/22 10:22 06/17/22 10:22 06/17/22 08:00 06/17/22 08:00 Period Temp Pulse Resp BP Sys/Olson Pulse Ox O2 Del Method O2 Flow Rate Last 24 Hr 96 F-98.2 F 79-122 10- 75-159/44-146 91-100 BiPAP-Nasal Cannula 2-3 Intake and Output 06/17/22 06/17/22 06/17/22 03:59 11:59 19:59 Intake Total 220 220 Output Total 125 600 Balance 95 -380 Weight 81.828 kg Intake & Output: Intake & Output 06/17/22 06/17/22 06/17/22 03:59 11:59 19:59 Intake Total 220 220 Output Total 125 600 Balance 95 -380 Weight 81.828 kg Intake: Oral 220 220 Output: Void Amount 125 600 Other: Urine Appearance Clear Clear Urine Color Light Sepideh Yellow OBJ DATA Labs 06/17/22 05:11 06/17/22 05:11 Labs: Abnormal Lab Results 06/17/22 06/17/22 06/16/22 05:11 05:11 05:10 MCHC 30.8 L RDW 15.6 H [place] # (Auto) 1.00 H POC pCO2 32.3 L POC pO2 56 L POC HCO3 21.6 L POC ABG Base Excess -3.0 L ABG Lactic Acid 2.8 H POC VBG pCO2 at Temp POC VBG pO2 POC VBG HCO3 POC VBG Total CO2 VBG Lactic Acid Hgb O2 Saturation 90.0 L BUN 27 H POC Glucose POC WB Ioniz Calcium Phosphorus 2.4 L Lactate Dehydrogenase 319 H 06/16/22 06/16/22 06/16/22 04:52 02:00 02:00 MCHC RDW [place] # (Auto) POC pCO2 POC pO2 POC HCO3 POC ABG Base Excess ABG Lactic Acid POC VBG pCO2 at Temp 38.0 L 34.8 L POC VBG pO2 24 L POC VBG HCO3 22.2 L POC VBG Total CO2 23.0 L VBG Lactic Acid 2.6 H 4.0 H* Hgb O2 Saturation BUN POC Glucose 170 H POC WB Ioniz Calcium 1.09 L Phosphorus Lactate Dehydrogenase Meds: Medications Acetaminophen (Acetaminophen 325 Mg Tablet) 650 mg PO Q6HP PRN; Protocol PRN Reason: Per Pain Protocol/Fever > 101 Last Admin: 06/16/22 14:35 Dose: 650 mg Acetaminophen/Butalbital/Caffeine (Butalb/Acetaminophen/Caffeine 1 Tablet) 1 tab PO Q4HP PRN PRN Reason: Headache Last Admin: 06/17/22 07:42 Dose: 1 tab Albuterol/Ipratropium (Ipratropium/Albuterol 3 Ml Ampul.Neb) 3 ml NEB Q4HP PRN PRN Reason: Shortness Of Breath Carvedilol (Carvedilol 6.25 Mg Tablet) 6.25 mg PO BIDCC [facility] Last Admin: 06/17/22 07:44 Dose: 6.25 mg Enoxaparin Sodium (Enoxaparin 40 Mg/0.4 Ml Syringe) 40 mg SQ DAILY [facility] Last Admin: 06/17/22 08:31 Dose: 40 mg Escitalopram Oxalate (Escitalopram 20 Mg Tablet) 20 mg PO QDAY [facility] Last Admin: 06/17/22 08:30 Dose: 20 mg Furosemide (Furosemide 40 Mg/4 Ml Vial) 40 mg IV BIDD [facility] Stop: 06/18/22 12:00 Last Admin: 06/17/22 08:30 Dose: 40 mg Gabapentin (Gabapentin 100 Mg Capsule) 100 mg PO QHS [facility] Last Admin: 06/16/22 20:58 Dose: 100 mg Potassium Chloride 40 meq/ (Dextrose) 520 mls @ 130 mls/hr IV UD PRN PRN Reason: Potassium < 3 Magnesium Sulfate (Magnesium Sulfate) 2 gm in 50 mls @ 50 mls/hr IV UD PRN PRN Reason: Magnesium </= 1.6 Lisinopril (Lisinopril 5 Mg Tablet) 5 mg PO DAILY [facility] Last Admin: 06/17/22 08:30 Dose: 5 mg Lorazepam (Lorazepam 2 Mg/Ml Vial) 0.5 mg IV Q6HP PRN PRN Reason: ANXIETY/SEDATION Last Admin: 06/17/22 08:32 Dose: 0.5 mg Methocarbamol (Methocarbamol 750 Mg Tablet) 750 mg PO BID PRN PRN Reason: Muscle spasms Last Admin: 06/17/22 11:25 Dose: 750 mg Nicotine (Nicotine 14 Mg Patch) 14 mg TOPICAL DAILY@1000 [facility] Last Admin: 06/17/22 11:25 Dose: 14 mg Ondansetron HCl (Ondansetron 4 Mg/2 Ml Vial) 4 mg IV Q4HP PRN PRN Reason: Nausea And Vomiting Last Admin: 06/16/22 17:35 Dose: 4 mg Polyethylene Glycol (Polyethylene Glycol 3350 17 Gm Packet) 17 gm PO DAILYP PRN PRN Reason: Constipation Potassium Chloride (Potassium Chloride 20 Meq Tablet) 40 meq PO UD PRN PRN Reason: Potssium is 3-3.5 Potassium Chloride (Potassium Chloride 20 Meq Tablet) 40 meq PO UD PRN PRN Reason: Potassium < 3 Ropinirole HCl (Ropinirole 0.25 Mg Tablet) 0.25 mg PO QHS PRN PRN Reason: Muscle Spasm Senna (Sennosides 1 Tablet) 2 tab PO DAILYP PRN PRN Reason: Constipation Sodium Chloride (0.9 % Sodium Chloride 10 Ml Syringe) 10 ml IV Q8 [facility] Last Admin: 06/17/22 05:45 Dose: 10 ml Trazodone HCl (Trazodone Hcl 150 Mg Tablet) 225 mg PO QHS [facility] Last Admin: 06/16/22 20:58 Dose: 225 mg A/P Narrative A/P Narrative: Assessment:62-year-old female with a history of chronic systolic heart failure, hypertension, COPD, anxiety, depression admitted for acute hypoxic respiratory failure secondary to acute on chronic systolic heart failure exacerbation. *Acute hypoxic respiratory failure: 2/2 CHF -on bipap initially -currently on 3L *Hyperlactatemia: 2/2 above *Acute on chronic systolic(35%)/diastolic(II) heart failure: follows with Dr. Lewis -good diuresis o/n *COPD(not on home O2): *HTN: elevated on admit *Anxiety/depression: *Tobacco abuse: *Chronic pain: Has intrathecal pump and follows with pain clinic Plan: -BiPAP and wean as able -IV Lasix bid -nitro d/c -Monitor renal function/UOP/fluid balance -Monitor and replace electrolytes as needed -home beta-umesh and ACEI (reduce for soft BP, increase as needed) -prn ativan -prn nebs -PT/OT -CM for placement needs -prescribe rescue inhaler upon d/c -Smoke cessation counseling -ppx: Lovenox Time Spent With Patient Time: Total time spent is greater than 50% in coordination of care (as documented) at patient's floor/unit and/or counseling patient: QUALITY Stroke Symptom Onset Unknown: No VTE Deep Vein Thrombosis/Pulmonary Embolism Present on Admission: No
== END 2022-06-17 20:13 | disposition left against medical advice (07) | DRG 291 ==
LOC: ED 01:31 → ICU 09:48
PROVIDERS: ADMIT Internal Medicine; ATTEND Internal Medicine

== ENCOUNTER 2024-08-18 22:38 | Observation (INO) ==
[2024-08-18] MEDS ORDERED: IOPAMIDOL 100 ML BOTTLE IV ONE (22:39)
[2024-08-18] MEDS: ONDANSETRON 4 MG/2 ML VIAL IV ONE (23:52)
[2024-08-18] MEDS: 0.9 % SODIUM CHLORIDE 1,000 ML IV ONE (23:52)
[2024-08-19 00:18] LABS: Bacteria,Urine 0 /hpf (0); Bilirubin,Urine Negative (Negative); Color,Urine Yellow; Glucose,Urine (UA) Negative (Negative); Ketones,Urine Trace mg/dL (Negative); Leukocyte Esterase,Urine Negative /uL (Negative); Mucus,Urine Many /hpf; PH,Urine 5.5 (5.0-9.0); Protein,Urine 30 mg/dL (Negative); Specific Gravity,Urine 1.025 (1.000-1.035); Urobilinogen,Urine Normal
[2024-08-19 00:21] LABS: Basophils # (Auto) 0.03 K/mcL (0.00-0.30); Basophils % (Auto) 0.3 % (0.0-2.0); Eosinophils # (Auto) 0.07 K/mcL (0.00-0.70); Eosinophils % (Auto) 0.6 % (0.0-7.0); Hematocrit 34.9 % (34.1-44.9); Hemoglobin 10.9 g/dL (11.2-15.7); Lymphocytes # (Auto) 1.75 K/mcL (1.50-4.80); Lymphocytes % (Auto) 15.1 % (15.5-49.0); Mean Corpuscular HGB Conc 31.2 g/dL (31.0-36.0); Monocytes # (Auto) 0.60 K/mcL (0.10-0.90); Monocytes % (Auto) 5.2 % (1.0-12.0); Neutrophils % (Auto) 78.6 % (38.0-78.0); Platelet Count 328 K/mcL (140-440); RBC 4.57 M/mcL (3.59-5.38); WBC 11.6 K/mcL (4.5-11.0)
[2024-08-19 00:32] LABS: ALT/SGPT 8 U/L (<40); AST/SGOT 13 U/L (<32); Albumin 4.0 gm/dL (3.2-5.2); Albumin/Globulin Ratio 1.3 (1.0-2.3); Alkaline Phosphatase 182 U/L (39-117); Anion Gap 14.0 (8.0-16.0); Bilirubin,Total 0.4 mg/dL (0.1-1.0); Blood Urea Nitrogen 8 mg/dL (8-23); Calcium 9.4 mg/dL (8.6-10.4); Carbon Dioxide 21 mmol/L (22-30); Chloride 103 mmol/L (96-108); Globulin 3.2 gm/dL (2.2-3.7); Glucose 160 mg/dL (70-105); Potassium 4.4 mmol/L (3.3-5.1); Sodium 138 mmol/L (133-145)
[2024-08-19] MEDS: IPRATROPIUM/ALBUTEROL 3 ML AMPUL.NEB NEB ONE (00:38)
[2024-08-19] MEDS: PROCHLORPERAZINE 10 MG/2 ML VIAL IV PRN (04:11)
[2024-08-19] MEDS: 0.9 % SODIUM CHLORIDE 1,000 ML IV SCH (04:45)
[2024-08-19 05:18] VITALS: TEMP 97.1; O2SAT 94
== END 2024-08-19 06:10 | disposition left against medical advice (07) ==
LOC: MEDSUR 22:38 → ED 22:38 → MEDSUR 08-19 04:38
PROVIDERS: ADMIT Internal Medicine; ATTEND Internal Medicine